=== PATIENT | female | born 1945 | race Caucasian/White ===

== ENCOUNTER → 2018-02-02 | Outpatient (CLI) | payer OTHER | LOC: BMCIMAGING 14:15 | PROVIDERS: ATTEND Internal Medicine | DX: Z12.31 Encounter for screening mammogram for malignant neoplasm of breast (principal); Z13.820 Encounter for screening for osteoporosis; M85.89 Other specified disorders of bone density and structure, multiple sites; Z78.0 Asymptomatic menopausal state ==

== ENCOUNTER → 2018-05-22 | Outpatient (CLI) | payer OTHER | LOC: BMCIMAGING 13:23 | PROVIDERS: ATTEND Internal Medicine | DX: I80.02 Phlebitis and thrombophlebitis of superficial vessels of left lower extremity (principal) | CPT/HCPCS: 82607-90 ==

== ENCOUNTER → 2019-03-22 | Outpatient (CLI) | payer OTHER | LOC: BMCIMAGING 08:03 | PROVIDERS: ATTEND Internal Medicine | DX: Z12.31 Encounter for screening mammogram for malignant neoplasm of breast (principal) ==

== ENCOUNTER → 2019-04-28 | Outpatient (CLI) | payer OTHER | LOC: BMCIMAGING 13:23 ==